=== PATIENT | female | born 1985 | race Caucasian/White ===

== ENCOUNTER → 2019-10-08 20:41 | Outpatient (CLI) | payer OTHER ==
[2014-08-01 18:09] VITALS: BMI 25.5
[~2019-10-08 20:41] MED LIST: COUMADIN10 MG PO; FLUTICASONE PRO16 GM NS; IPRAT-ALBUT 0.5-3 ML UPD; SINGULAIR10 MG PO; STERAPRED 5MG 125 MG PO
== END | disposition home or self-care (01) ==
LOC: D.MAMMO 09:00
PROVIDERS: ATTEND Clinical Nurse Specialist Family Health
DX: Z80.3 Family history of malignant neoplasm of breast (principal)